=== PATIENT | female | born 1995 | race Caucasian/White ===

== ENCOUNTER 2023-07-08 22:19 | Inpatient (IN) | payer MEDICAID, OTHER ==
[2023-07-09] MEDS ORDERED: LORazepam 2 MG/ML INJ IV PRN ×3 (01:04)
[2023-07-09 01:17] LABS: Appearance,Urine Clear (Clear); Bilirubin,Urine Negative (Negative); Blood,Urine Negative (Negative); Color,Urine Colorless; Glucose,Urine (UA) Negative (Negative); Ketones,Urine Negative (Negative); Leukocyte Esterase,Urine Negative (Negative); Nitrite,Urine Negative (Negative); Protein,Urine Negative (Negative); Specific Gravity,Urine 1.011 (1.001-1.035); Urobilinogen,Urine <2.0 mg/dL (<2.0)
--- NOTE | 2023-07-09 01:28 | ED ---
Abdominal Pain HPI - General Chief Complaint: Abdominal Pain Stated Complaint: Abdominal pains Time Seen by Provider: 07/09/23 00:17 Source: patient Mode of arrival: ambulatory Limitations: no limitations - History of Present Illness Initial Comments: 27-year-old female presenting with chief complaint of abdominal pain and depression. Patient has history of alcohol use disorder. She drinks about 2 fifths per day. Patient was sober for 42 days and has been on a 4-day binge. She has been having some upper abdominal burning and sharp pain. Does have some radiation to the back. She states that a few days ago she was experiencing nausea and vomiting. Patient states that she is significantly depressed and at times hopes that she does not wake up in the morning after drinking. She has no active plan to harm herself. She has no thoughts of wanting to harm others. Her last drink was at 9 PM - Related Data Home Medications Medication Instructions Recorded Confirmed Naltrexone Microspheres [VivitroL] 380 mg IM Q28D 07/09/23 07/09/23 busPIRone HCL 10 mg PO TID 07/09/23 07/09/23 norgestimate-ethinyl estradioL 1 tab PO DIRECTED 07/09/23 07/09/23 [Shyanne 0.25-0.035 mg Tablet] Allergies Allergy/AdvReac Type Severity Reaction Status Date / Time codeine Allergy Nausea & Verified 07/09/23 17:19 Vomiting morphine Allergy Unknown Verified 07/09/23 17:19 Childhood Review of Systems ROS Statement: Those systems with pertinent positive or pertinent negative responses have been documented in the HPI. ROS Other: All systems not noted in ROS Statement are negative. Past Medical History Past Medical History: Asthma Additional Past Medical History / Comment(s): ETOH History of Any Multi-Drug Resistant Organisms: None Reported Additional Past Surgical History / Comment(s): oral surgery/wisdom teeth Past Psychological History: Anxiety Smoking Status: Never smoker Past Alcohol Use History: Heavy Past Drug Use History: Marijuana General Exam Limitations: no limitations General appearance: alert, in no apparent distress Head exam: Present: atraumatic, normocephalic Eye exam: Present: normal appearance, EOMI Neck exam: Present: normal inspection. Absent: meningismus Respiratory exam: Present: normal lung sounds bilaterally. Absent: respiratory distress, wheezes, rales, rhonchi, stridor Cardiovascular Exam: Present: regular rate, normal rhythm, normal heart sounds. Absent: systolic murmur, diastolic murmur, rubs, gallop, clicks GI/Abdominal exam: Present: soft. Absent: distended, tenderness, guarding, rebound, rigid Neurological exam: Present: alert, oriented X3 Psychiatric exam: Present: normal affect, normal mood Skin exam: Present: warm, dry Course Vital Signs 07/08/23 07/09/23 07/09/23 23:05 03:38 06:00 Temperature 98.3 F 98.4 F Pulse Rate 101 H 90 78 Respiratory 20 18 18 Rate Blood Pressure 116/67 91/47 105/74 O2 Sat by Pulse 97 97 98 Oximetry 07/09/23 07/09/23 09:00 14:28 Temperature Pulse Rate 88 80 Respiratory 16 16 Rate Blood Pressure 99/66 120/99 O2 Sat by Pulse 97 99 Oximetry Medical Decision Making - Medical Decision Making Was pt. sent in by a medical professional or institution (, PA, REEL CART OPERATOR, urgent care, hospital, or [place] [facility] [place] facility...) When possible be specific @ -No Did you speak to anyone other than the patient for history (EMS, parent, family, police, friend...)? What history was obtained from this source @ -No Did you review nursing and triage notes (agree or disagree)? Why? @ -I reviewed and agree with nursing and triage notes Were old charts reviewed (outside hosp., previous admission, EMS record, old EKG, old radiological studies, urgent care reports/EKG's, [place] health care facility records)? Report findings @ -No old charts were reviewed Differential Diagnosis (chest pain, altered mental status, abdominal pain women, abdominal pain men, vaginal bleeding, weakness, fever, dyspnea, syncope, headache, dizziness, GI bleed, back pain, seizure, CVA, palpatations, mental health, musculoskeletal)? @ -MDM Differential Abdominal Pain Women: Appendicitis, Cholecystitis, diverticulosis, ischemic bowel, pancreatitis, hepatitis, UTI, gastroenteritis, AAA, incarcerated hernia, bowel obstruction, constipation, inflammatory bowel, hepatitis, peptic ulcer disease, splenic infarction, perforated viscus, vulvitis, ovarian torsion, PID, kidney stone, placenta abruption... This is not meant to be an all-inclusive list EKG interpreted by me (3pts min.). @ -As above X-rays interpreted by me (1pt min.). @ -None done CT interpreted by me (1pt min.). @ -None done U/S interpreted by me (1pt. min.). @ -None done What testing was considered but not performed or refused? (CT, X-rays, U/S, labs)? Why? @ -None What meds were considered but not given or refused? Why? @ -None Did you discuss the management of the patient with other professionals (professionals i.e. , PA, REEL CART OPERATOR, lab, RT, psych nurse, secondary social studies teacher, nuclear reactor technician, teacher, chairman and chief executive officer, showcase trimmer)? Give summary @ -No Was smoking cessation discussed for >3mins.? @ -No Was critical care preformed (if so, how long)? @ -No Were there social determinants of health that impacted care today? How? (Homele ssness, low income, unemployed, alcoholism, drug addiction, transportation, low edu. Level, literacy, decrease access to med. care, longterm, rehab)? @ -No Was there de-escalation of care discussed even if they declined (Discuss DNR or withdrawal of care, Hospice)? DNR status @ -No What co-morbidities impacted this encounter? (DM, HTN, Smoking, COPD, CAD, Cancer, CVA, ARF, Chemo, Hep., AIDS, mental health diagnosis, sleep apnea, morbid obesity)? @ -Alcohol use disorder, depression Was patient admitted / discharged? Hospital course, mention meds given and route, prescriptions, significant lab abnormalities, going to OR and other pertinent info. @ -27-year-old female with alcohol use disorder presenting with chief complaint of abdominal pain as well as depression with suicidal ideation. History and physical exam are conducted. Lipase 320. Patient symptoms were worse earlier in the week. She likely has a resolving pancreatitis. Patient will be evaluated by EPS in the morning. Patient is signed out to my attending. - Lab Data Result diagrams: 07/09/23 01:35 07/09/23 01:35 Lab Results 07/09/23 07/09/23 07/09/23 Range/Units 00:45 00:45 01:35 WBC 6.3 (3.8-10.6) k/uL RBC 4.26 (3.80-5.40) m/uL Hgb 13.2 (11.4-16.0) gm/dL Hct 39.7 (34.0-46.0) % MCV 93.3 (80.0-100.0) fL MCH 31.1 (25.0-35.0) pg MCHC 33.4 (31.0-37.0) g/dL RDW 12.5 (11.5-15.5) % Plt Count 244 (150-450) k/uL MPV 10.3 Neutrophils % 29 % Lymphocytes % 47 % Monocytes % 6 % Eosinophils % 13 % Basophils % 2 % Neutrophils # 1.8 (1.3-7.7) k/uL Lymphocytes # 3.0 (1.0-4.8) k/uL Monocytes # 0.4 (0-1.0) k/uL Eosinophils # 0.8 H (0-0.7) k/uL Basophils # 0.1 (0-0.2) k/uL Sodium (137-145) mmol/L Potassium (3.5-5.1) mmol/L Chloride (98-107) mmol/L Carbon Dioxide (22-30) mmol/L Anion Gap mmol/L BUN (7-17) mg/dL Creatinine (0.52-1.04) mg/dL Est GFR (CKD-EPI)AfAm (>60 ml/min/1.73 sqM) Est GFR (CKD-EPI)NonAf (>60 ml/min/1.73 sqM) Glucose (74-99) mg/dL Plasma Lactic Acid Juan (0.7-2.0) mmol/L Calcium (8.4-10.2) mg/dL Total Bilirubin (0.2-1.3) mg/dL AST (14-36) U/L ALT (4-34) U/L Alkaline Phosphatase (38-126) U/L Total Protein (6.3-8.2) g/dL Albumin (3.5-5.0) g/dL Amylase (30-110) U/L Lipase (23-300) U/L Urine Color Colorless Urine Appearance Clear (Clear) Urine pH 5.0 (5.0-8.0) Ur Specific Organ 1.011 (1.001-1.035) Urine Protein Negative (Negative) Urine Glucose (UA) Negative (Negative) Urine Ketones Negative (Negative) Urine Blood Negative (Negative) Urine Nitrite Negative (Negative) Urine Bilirubin Negative (Negative) Urine Urobilinogen <2.0 (<2.0) mg/dL Ur Leukocyte Esterase Negative (Negative) Urine HCG, Qual Not Detected (Not Detectd) SARS-CoV-2 (PCR) (Not Detectd) 07/09/23 07/09/23 07/09/23 Range/Units 01:35 01:35 12:22 WBC (3.8-10.6) k/uL RBC (3.80-5.40) m/uL Hgb (11.4-16.0) gm/dL Hct (34.0-46.0) % MCV (80.0-100.0) fL MCH (25.0-35.0) pg MCHC (31.0-37.0) g/dL RDW (11.5-15.5) % Plt Count (150-450) k/uL MPV Neutrophils % % Lymphocytes % % Monocytes % % Eosinophils % % Basophils % % Neutrophils # (1.3-7.7) k/uL Lymphocytes # (1.0-4.8) k/uL Monocytes # (0-1.0) k/uL Eosinophils # (0-0.7) k/uL Basophils # (0-0.2) k/uL Sodium 140 (137-145) mmol/L Potassium 4.0 (3.5-5.1) mmol/L Chloride 108 H (98-107) mmol/L Carbon Dioxide 25 (22-30) mmol/L Anion Gap 7 mmol/L BUN 11 (7-17) mg/dL Creatinine 0.74 (0.52-1.04) mg/dL Est GFR (CKD-EPI)AfAm >90 (>60 ml/min/1.73 sqM) Est GFR (CKD-EPI)NonAf >90 (>60 ml/min/1.73 sqM) Glucose 91 (74-99) mg/dL Plasma Lactic Acid Juan 1.0 (0.7-2.0) mmol/L Calcium 9.1 (8.4-10.2) mg/dL Total Bilirubin 0.3 (0.2-1.3) mg/dL AST 19 (14-36) U/L ALT 16 (4-34) U/L Alkaline Phosphatase 85 (38-126) U/L Total Protein 6.8 (6.3-8.2) g/dL Albumin 4.0 (3.5-5.0) g/dL Amylase 65 (30-110) U/L Lipase 320 H (23-300) U/L Urine Color Urine Appearance (Clear) Urine pH (5.0-8.0) Ur Specific Organ (1.001-1.035) Urine Protein (Negative) Urine Glucose (UA) (Negative) Urine Ketones (Negative) Urine Blood (Negative) Urine Nitrite (Negative) Urine Bilirubin (Negative) Urine Urobilinogen (<2.0) mg/dL Ur Leukocyte Esterase (Negative) Urine HCG, Qual (Not Detectd) SARS-CoV-2 (PCR) Not Detected (Not Detectd) Disposition Clinical Impression: Depression, Suicidal ideation, Alcohol use disorder Disposition: ADMITTED IP TO THIS HOSP Condition: Fair
[2023-07-09] MEDS: SODIUM CHLORIDE 0.9% 1,000 ML IV STA (01:36)
[2023-07-09] MEDS: ONDANSETRON 4 MG/2 ML VIAL IVP STA (01:37)
[2023-07-09] MEDS: KETOROLAC 15 MG/ML 1 ML VIAL IVP STA (01:37)
[2023-07-09] MEDS: THIAMINE 100 MG/ML 2 ML VIAL IM STA (01:38)
[2023-07-09 01:55] LABS: Basophils # (A) 0.1 k/uL (0-0.2); Basophils % (A) 2 %; Eosinophils # (A) 0.8 k/uL (0-0.7); Eosinophils % (A) 13 %; HCT 39.7 % (34.0-46.0); HGB 13.2 gm/dL (11.4-16.0); Lymphocytes % (A) 47 %; MCH 31.1 pg (25.0-35.0); MCHC 33.4 g/dL (31.0-37.0); MCV 93.3 fL (80.0-100.0); Mean Platelet Volume 10.3; Monocytes # (A) 0.4 k/uL (0-1.0); Monocytes % (A) 6 %; Neutrophils # (A) 1.8 k/uL (1.3-7.7); Neutrophils % (A) 29 %; Platelet Count 244 k/uL (150-450); RBC 4.26 m/uL (3.80-5.40); RDW 12.5 % (11.5-15.5); WBC 6.3 k/uL (3.8-10.6)
[2023-07-09 02:06] LABS: ALT 16 U/L (4-34); AST 19 U/L (14-36); African American GFR (CKD) >90 (>60 ml/min/1.73 sqM); Alkaline Phosphatase 85 U/L (38-126); Amylase 65 U/L (30-110); Anion Gap 7 mmol/L; Blood Urea Nitrogen 11 mg/dL (7-17); Calcium 9.1 mg/dL (8.4-10.2); Carbon Dioxide 25 mmol/L (22-30); Chloride 108 mmol/L (98-107); Glucose 91 mg/dL (74-99); Lipase 320 U/L (23-300); Non-African American GFR(CKD) >90 (>60 ml/min/1.73 sqM); Sodium 140 mmol/L (137-145); Total Bilirubin 0.3 mg/dL (0.2-1.3); Total Protein 6.8 g/dL (6.3-8.2)
[2023-07-09] MEDS: PANTOPRAZOLE 40 MG/10 ML VIAL IVP STA (06:15)
[2023-07-09] MEDS ORDERED: MAGNESIUM HYDROXIDE 2,400 MG/30 ML CUP PO PRN (14:10)
[2023-07-09] MEDS ORDERED: LORazepam 2 MG/ML INJ IM PRN (14:10)
[2023-07-09] MEDS ORDERED: MAG HYDROX/AL HYDROX/SIMETH 355 ML BOTTLE PO PRN (14:10)
[2023-07-09] MEDS: NICOTINE 14MG/24HR PATCH TRANSDERM SCH (15:30)
[2023-07-09] MEDS: busPIRone HCl 10 MG TAB PO SCH (16:17)
[2023-07-09] MEDS: chlordiazePOXIDE 25 MG CAP PO SCH (16:17)
[2023-07-09] MEDS: IBUPROFEN 600 MG TAB PO PRN (16:18)
[2023-07-09] MEDS: MELATONIN 5 MG TABLET PO PRN (21:12)
[2023-07-09] MEDS: ONDANSETRON ODT 4 MG TAB PO PRN (21:12)
[2023-07-09] MEDS: PANTOPRAZOLE 40 MG TABLET PO SCH (21:12)
[2023-07-10] MEDS: THIAMINE 100 MG TAB PO SCH (08:58)
[2023-07-10] MEDS: ACETAMINOPHEN TAB 325 MG TAB PO PRN (08:58)
[2023-07-10] MEDS: LORazepam 1 MG TAB PO PRN (09:00)
[2023-07-10 10:44] LABS: Chol/HDL Ratio 4.67 Ratio; HDL Cholesterol 42.6 mg/dL (40.00-60.00)
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
[2023-07-10] MEDS: SERTRALINE 50 MG TAB PO SCH (13:31)
--- NOTE | 2023-07-10 16:23 | P.CONS ---
History of Present Illness - Reason for Consult Consult date: 07/10/23 - Chief Complaint Suicidal ideation/depression/abdominal pain - History of Present Illness 27-year-old female presenting with chief complaint of abdominal pain and depression. Patient has history of alcohol use disorder. She drinks about 2 fifths per day. Patient was sober for 42 days and has been on a 4-day binge. She has been having some upper abdominal burning and sharp pain. Does have some radiation to the back. She states that a few days ago she was experiencing nausea and vomiting. Patient states that she is significantly depressed and at times hopes that she does not wake up in the morning after drinking. She has no active plan to harm herself. She has no thoughts of wanting to harm others. Her last drink was at 9 PM Patient reports that she was seen at [facility] a couple days prior to this admission at which time she was diagnosed with pancreatitis and then later discharged home Patient reports no worsening in abdominal pain with meals Review of Systems REVIEW OF SYSTEMS: CONSTITUTIONAL: No fever, no malaise, no fatigue. HEENT: No recent visual problems or hearing problems. Denied any sore throat. CARDIOVASCULAR: No chest pain, orthopnea, PND, no palpitations, no syncope. PULMONARY: No shortness of breath, no cough, no hemoptysis. GASTROINTESTINAL: No diarrhea, no nausea, no vomiting, no abdominal pain. NEUROLOGICAL: No headaches, no weakness, no numbness. HEMATOLOGICAL: Denies any bleeding or petechiae. GENITOURINARY: Denies any burning micturition, frequency, or urgency. MUSCULOSKELETAL/RHEUMATOLOGICAL: Denies any joint pain, swelling, or any muscle pain. ENDOCRINE: Denies any polyuria or polydipsia. The rest of the 14-point review of systems is negative. Past Medical History Past Medical History: Asthma Additional Past Medical History / Comment(s): ETOH History of Any Multi-Drug Resistant Organisms: None Reported Additional Past Surgical History / Comment(s): oral surgery/wisdom teeth Past Psychological History: Anxiety Smoking Status: Never smoker Past Alcohol Use History: Heavy Past Drug Use History: Marijuana Medications and Allergies Home Medications Medication Instructions Recorded Confirmed Type Naltrexone Microspheres [VivitroL] 380 mg IM Q28D 07/09/23 07/09/23 History busPIRone HCL 10 mg PO TID 05/23/24 05/23/24 History norgestimate-ethinyl estradioL 1 tab PO DIRECTED 07/09/23 07/09/23 History [Shyanne 0.25-0.035 mg Tablet] Allergies Allergy/AdvReac Type Severity Reaction Status Date / Time codeine Allergy Nausea & Verified 07/09/23 17:19 Vomiting morphine Allergy Unknown Verified 07/09/23 17:19 Childhood Physical Exam Vitals: Vital Signs Temp Pulse Pulse Resp BP BP Pulse Ox 07/10/23 09:01 75 18 108/59 07/10/23 07:14 97.8 F 70 17 107/61 98 07/09/23 14:53 97.5 F L 78 18 128/85 98 07/09/23 14:28 80 16 120/99 99 General appearance: alert, in no apparent distress Head exam: Present: atraumatic, normocephalic Eye exam: Present: normal appearance, EOMI Neck exam: Present: normal inspection. Absent: meningismus Respiratory exam: Present: normal lung sounds bilaterally. Absent: respiratory distress, wheezes, rales, rhonchi, stridor Cardiovascular Exam: Present: regular rate, normal rhythm, normal heart sounds. Absent: systolic murmur, diastolic murmur, rubs, gallop, clicks GI/Abdominal exam: Present: soft. Absent: distended, tenderness, guarding, rebound, rigid Neurological exam: Present: alert, oriented X3 Psychiatric exam: Present: normal affect, normal mood Skin exam: Present: warm, dry Results CBC & Chem 7: 07/09/23 01:35 07/09/23 01:35 Labs: Abnormal Lab Results - Last 24 Hours (Table) 07/09/23 Range/Units 01:35 Triglycerides 480.00 H (0.00-149.00) mg/dL VLDL Cholesterol, Calc 96.00 H (5.00-40.00) mg/dL Assessment and Plan Assessment: 1. Depression/suicidal ideation; trazodone 50 mg nightly, Zoloft 50 mg daily 2. Chronic alcohol abuse; continue with thiamine and folic acid supplement; patient counseled on need for cessation; patient is currently on Librium 25 mg p.o. twice daily 3. Resolving pancreatitis; lipase is 320 upon admission; patient reports continued abdominal pain but describes no worsening in pain with meals -- We will repeat lipase levels and then make recommendations as needed 4. Gastroesophageal reflux disease; patient has been placed on Protonix 40 mg daily DVT prophylaxis; ambulation CODE STATUS; full code
[2023-07-10 19:29] LABS: Urine Alcohol Positive (Negative); Urine Barbiturate Negative (Negative); Urine Cocaine Negative (Negative); Urine Methadone Negative (Negative); Urine Opiates Negative (Negative); Urine Phencyclidine Negative (Negative)
[2023-07-10] MEDS: chlordiazePOXIDE 25 MG CAP PO SCH (21:43)
[2023-07-10] MEDS: traZODone HCL 50 MG TAB PO SCH (21:43)
--- NOTE | 2023-07-11 19:21 | P.PN ---
Progress Note - Text Progress Note Date: 07/11/23 Interval history: Patient was seen sitting with peers prior meal time and was directable and agreeable to speak with creative services writer. She reports mood is improved, feels better today. She reports she slept well last night on the Trazodone. At this time patient denies any suicidal or homicidal ideation, intent or plan. Denies any auditory or visual hallucinations. Patient denies any side effects from the medications and has been compliant with meds. She is hopeful for discharge early next week. Mental status exam: General Appearance: Patient appears to be stated age is alert, dressed in clean casual attire, good hygiene and grooming. Behavior: Patient is calm, without any agitated behavior. Speech: Patient's speech is fluent and non-pressured. Mood/Affect: Patient reports their mood is better today, affect is congruent. Suicidality/Homicidality: Patient denies having any suicidal or homicidal ideation intent or plan. Perceptions: Patient denies any visual hallucinations and denies any auditory hallucinations. Though content/process: There is no evidence of any delusional thought content and thought process is linear. Memory and concentration: AOX3, grossly intact for the purposes of this session. Judgment and insight: improving mildly Assessment/Plan: Continue with current diagnosis. Patient continues to meet criteria for inpatient psychiatric admission for symptom stabilization and safety. Patient will be maintained on current psychotropic medication regimen. Monitor for medication compliance and for any psychotropic medication side effects. Will continue to monitor ongoing response to treatment. Encouraged participation in milieu.
--- NOTE | 2023-07-12 18:42 | P.PN ---
Progress Note - Text Progress Note Date: 07/12/23 Interval history: Patient was seen sitting with peers prior meal time and was directable and agreeable to speak with bond writer. She reports mood is improved, feels better today, but still some anxiety and depression; she rates depression as 3/10. She reports difficult falling and staying asleep last night and requests an increase in her Trazodone, as well as an increase in her Zoloft and Buspar. At this time patient denies any suicidal or homicidal ideation, intent or plan. Denies any auditory or visual hallucinations. Patient denies any side effects from the medications and has been compliant with meds. She is hopeful for discharge early this week. Mental status exam: General Appearance: Patient appears to be stated age is alert, dressed in clean casual attire, good hygiene and grooming. Behavior: Patient is calm, without any agitated behavior. Speech: Patient's speech is fluent and non-pressured. Mood/Affect: Patient reports their mood is better today but still some anxiety/depression, affect is congruent. Suicidality/Homicidality: Patient denies having any suicidal or homicidal ideation intent or plan. Perceptions: Patient denies any visual hallucinations and denies any auditory hallucinations. Though content/process: There is no evidence of any delusional thought content and thought process is linear. Memory and concentration: AOX3, grossly intact for the purposes of this session. Judgment and insight: improving mildly Assessment/Plan: Continue with current diagnosis. Patient continues to meet criteria for inpatient psychiatric admission for symptom stabilization and safety. Increase Trazodone to 100 mg QHS for sleep. Increase Zoloft to 75 mg daily for depression/anxiety. Will give an additional Zoloft 25 mg x 1 now to make today's Zoloft dose 75 mg. Increase Buspar to 15 mg TID for anxiety. Monitor for medication compliance and for any psychotropic medication side effects. Will continue to monitor ongoing response to treatment. Encouraged participation in milieu. Consider discharge early this week if continues to stabilize.
[2023-07-12] MEDS: SERTRALINE 25 MG TAB PO STA (19:44)
[2023-07-12] MEDS: traZODone HCL 100 MG TAB PO SCH (21:19)
[2023-07-12] MEDS: busPIRone HCl 5 MG TAB PO SCH (21:19)
[2023-07-13 07:04] VITALS: RESP 18
[2023-07-13] MEDS: SERTRALINE 25 MG TAB PO SCH (08:41)
--- NOTE | 2023-07-13 11:44 | P.PN ---
Progress Note - Text Progress Note Date: 07/13/23 Interval history: Patient was seen in the hallway near her room and was directable and agreeable to speak with loan underwriter. She reports good mood, sleep and appetite. She reports she slept well on the higher dose of Trazodone last night and woke feeling refreshed however she feels tired 1-2 hours after taking her morning medications. We discussed switching the Zoloft to bedtime starting tomorrow night since she already took her Zoloft this morning and she agrees. At this time patient denies any suicidal or homicidal ideation, intent or plan. Denies any auditory or visual hallucinations. Patient denies any side effects from the medications and has been compliant with meds. She is hopeful for discharge tomorrow. Mental status exam: General Appearance: Patient appears to be stated age is alert, dressed in clean casual attire, good hygiene and grooming. Behavior: Patient is calm, without any agitated behavior. Speech: Patient's speech is fluent and non-pressured. Mood/Affect: Patient reports their mood is improved, affect is congruent. Suicidality/Homicidality: Patient denies having any suicidal or homicidal ideation intent or plan. Perceptions: Patient denies any visual hallucinations and denies any auditory hallucinations. Though content/process: There is no evidence of any delusional thought content and thought process is linear and goal-directed and future-oriented. Memory and concentration: AOX3, grossly intact for the purposes of this session. Judgment and insight: improving mildly Assessment/Plan: Continue with current diagnosis. Patient continues to meet criteria for inpatient psychiatric admission for symptom stabilization and safety. Continue Trazodone 100 mg QHS for sleep. Adjust Zoloft 75 mg to QHS starting tomorrow night for depression/anxiety due to feeling tired in the morning after taking morning medications. Continue Buspar 15 mg TID for anxiety. Monitor for medication compliance and for any psychotropic medication side effects. Will continue to monitor ongoing response to treatment. Encouraged participation in milieu. Consider discharge tomorrow if continues to stabilize.
[2023-07-14 07:51] VITALS: BP 108/61; PULSE 66; TEMP 97.5
[2023-07-14] MEDS: SERTRALINE 25 MG TAB PO SCH (09:17)
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
[2023-07-14] MEDS ORDERED: SERTRALINE 25 MG TAB PO SCH (21:00)
[2023-07-15] MEDS ORDERED: SERTRALINE 100 MG TAB PO SCH (09:00)
== END 2023-07-14 14:17 | disposition other institution (70) | DRG 751 ==
LOC: EC 22:19 → 3MHU 07-09 14:00
PROVIDERS: ADMIT Psychiatry & Neurology Psychiatry; ATTEND Psychiatry & Neurology Psychiatry
DX: F33.2 Major depressive disorder, recurrent severe without psychotic features (principal); F43.10 Post-traumatic stress disorder, unspecified; F06.4 Anxiety disorder due to known physiological condition; R45.851 Suicidal ideations; F14.11 Cocaine abuse, in remission; K21.9 Gastro-esophageal reflux disease without esophagitis; K85.90 Acute pancreatitis without necrosis or infection, unspecified; F15.11 Other stimulant abuse, in remission; F10.20 Alcohol dependence, uncomplicated; J45.909 Unspecified asthma, uncomplicated; Z65.3 Problems related to other legal circumstances; Z11.52 Encounter for screening for COVID-19; Z71.41 Alcohol abuse counseling and surveillance of alcoholic; Z28.310 Unvaccinated for COVID-19; Z28.21 Immunization not carried out because of patient refusal; Z79.899 Other long term (current) drug therapy; Z91.52 Personal history of nonsuicidal self-harm; Z88.5 Allergy status to narcotic agent
CPT/HCPCS: 36415; 80053; 80061; 80306; 81003; 81025; 82075; 82150; 83036; 83605; 83690; 83721; 84443; 85025; 87635; 96372; 96374; 96375; 99285

== ENCOUNTER 2023-12-19 18:40 | Emergency (ER) | payer MEDICAID, OTHER ==
[2023-12-19 18:49] VITALS: TEMP 98.4
--- NOTE | 2023-12-19 19:14 | ED ---
Female Urogenital HPI - General Chief complaint: Vaginal Bleeding Stated complaint: Vaginal bleeding Time Seen by Provider: 12/19/23 18:58 Source: patient, EMS, RN notes reviewed Mode of arrival: EMS - History of Present Illness Initial comments: This is a 28-year-old female with no significant past medical history presenting to the emergency department via EMS from [facility] for alcohol abuse for chief complaint of vaginal bleeding. Patient states that she had a cervical biopsy completed a few days ago with concern for atypical cells on Pap smear. biopsy was completed at [facility] outpatient facility. Patient states that since this time she has been experiencing continued vaginal bleeding and mild abdominal cramping. she is denying heart palpitations, dizziness, lightheadedness. denies blood thinner use. - Related Data Home Medications Medication Instructions Recorded Confirmed Naltrexone Microspheres [Vivitrol] 380 mg IM Q28D 07/09/23 07/09/23 norgestimate-ethinyl estradioL 1 tab PO DIRECTED 07/09/23 07/09/23 [Shyanne 0.25-0.035 mg Tablet] Previous Rx's Medication Instructions Recorded Pantoprazole [Protonix] 40 mg PO AC-BRKFST 15 Days #15 tab 07/14/23 Sertraline [Zoloft] 100 mg PO DAILY 15 Days #15 tab 07/14/23 Thiamine [Vitamin B-1] 100 mg PO DAILY 30 Days #30 tab 07/14/23 busPIRone HCl [Buspar] 15 mg PO TID 45 Days #45 tab 07/14/23 traZODone HCL [Desyrel] 100 mg PO HS 15 Days #15 tab 07/14/23 Allergies Allergy/AdvReac Type Severity Reaction Status Date / Time codeine Allergy Nausea & Verified 12/19/23 18:49 Vomiting morphine Allergy Unknown Verified 12/19/23 18:49 Childhood Review of Systems ROS Statement: Those systems with pertinent positive or pertinent negative responses have been documented in the HPI. ROS Other: All systems not noted in ROS Statement are negative. Past Medical History Past Medical History: Asthma Additional Past Medical History / Comment(s): ETOH, abnormal pap smear History of Any Multi-Drug Resistant Organisms: None Reported Additional Past Surgical History / Comment(s): oral surgery/wisdom teeth, uterine ablasion Past Psychological History: Anxiety Smoking Status: Never smoker Past Alcohol Use History: Heavy Past Drug Use History: Marijuana General Exam General appearance: alert, in no apparent distress Eye exam: Present: normal appearance, PERRL, EOMI. Absent: scleral icterus, conjunctival injection, periorbital swelling ENT exam: Present: normal exam, mucous membranes moist Neck exam: Present: normal inspection. Absent: tenderness, meningismus, lymphadenopathy Respiratory exam: Present: normal lung sounds bilaterally. Absent: respiratory distress, wheezes, rales, rhonchi, stridor Cardiovascular Exam: Present: regular rate, normal rhythm, normal heart sounds. Absent: systolic murmur, diastolic murmur, rubs, gallop, clicks GI/Abdominal exam: Present: soft, normal bowel sounds. Absent: distended, tenderness, guarding, rebound, rigid Speculum exam: Present: vaginal bleeding Extremities exam: Present: normal inspection, full ROM, normal capillary refill. Absent: tenderness, pedal edema, joint swelling, calf tenderness Back exam: Present: normal inspection Skin exam: Present: warm, dry, intact, normal color. Absent: rash Course Vital Signs 12/19/23 12/19/23 12/19/23 18:43 19:20 21:04 Temperature 98.4 F Pulse Rate 110 H 103 H 86 Respiratory 20 16 20 Rate Blood Pressure 147/104 139/98 122/91 O2 Sat by Pulse 100 97 100 Oximetry Medical Decision Making - Medical Decision Making Was pt. sent in by a medical professional or institution ([facility] Cota, ADJUNCT PHLEBOTOMY INSTRUCTOR, urgent care, hospital, or jail...) When possible be specific @ -No Did you speak to anyone other than the patient for history (EMS, parent, family, police, friend...)? What history was obtained from this source @ -No Did you review nursing and triage notes (agree or disagree)? Why? @ -I reviewed and agree with nursing and triage notes Were old charts reviewed (outside hosp., previous admission, EMS record, old EKG, old radiological studies, urgent care reports/EKG's, jail records)? Report findings @ -No old charts were reviewed Differential Diagnosis (chest pain, altered mental status, abdominal pain women, abdominal pain men, vaginal bleeding, weakness, fever, dyspnea, syncope, headache, dizziness, GI bleed, back pain, seizure, CVA, palpatations, mental health, musculoskeletal)? @ -Differential Vaginal Bleeding: Spontaneous , threatened , molar , ectopic , bloody show, incompetent cervix, abruptioplacenta, placenta previa, uterine rupture, dysfunctional uterine bleeding, hemorrhage, uterine fibroids, this is not meant to be an all-inclusive list. EKG interpreted by me (3pts min.). @ -None X-rays interpreted by me (1pt min.). @ -None done CT interpreted by me (1pt min.). @ -None done U/S interpreted by me (1pt. min.). @ -None done What testing was considered but not performed or refused? (CT, X-rays, U/S, labs)? Why? @ -None What meds were considered but not given or refused? Why? @ -None Did you discuss the management of the patient with other professionals (professionals i.e. , PA, ADJUNCT PHLEBOTOMY INSTRUCTOR, lab, RT, psych nurse, social research assistant, admiralty lawyer, teacher, parole or probation officer, casework manager)? Give summary @ -No Was smoking cessation discussed for >3mins.? @ -No Was critical care preformed (if so, how long)? @ -No Were there social determinants of health that impacted care today? How? (Homeles sness, low income, unemployed, alcoholism, drug addiction, transportation, low edu. Level, literacy, decrease access to med. care, snf, rehab)? @ -No Was there de-escalation of care discussed even if they declined (Discuss DNR or withdrawal of care, Hospice)? DNR status @ -No What co-morbidities impacted this encounter? (DM, HTN, Smoking, COPD, CAD, Cancer, CVA, ARF, Chemo, Hep., AIDS, mental health diagnosis, sleep apnea, morbid obesity)? @ -None Was patient admitted / discharged? Hospital course, mention meds given and route, prescriptions, significant lab abnormalities, going to OR and other pertinent info. @ -Discharge. 28-year-old female with vaginal bleeding status post cergical biopsy. On evaluation patient is resting company no signs acute stress. She is noted to have mild suprapubic tenderness to palpation. On pelvic examination patient noted to have vaginal bleeding and mild cervical bleeding. Patient's laboratory studies including CBC, CMP unremarkable. Patient is stable for discharge at this time. Recommend she follows up as scheduled with glacing machine tender outpatient for further evaluation. Discussed with Dr. Barba Undiagnosed new problem with uncertain prognosis? @ -No Drug Therapy requiring intensive monitoring for toxicity (Heparin, Nitro, Insulin, Cardizem)? @ -No Were any procedures done? @ -No Diagnosis/symptom? @ -Vaginal bleeding Acute, or Chronic, or Acute on Chronic? @ -Acute Uncomplicated (without systemic symptoms) or Complicated (systemic symptoms)? @ -uncomplicated Side effects of treatment? @ -No Exacerbation, Progression, or Severe Exacerbation? @ -No Poses a threat to life or bodily function? How? (Chest pain, [place], [place], pneumonia, PE, COPD, DKA, ARF, appy, cholecystitis, CVA, Diverticulitis, Homicidal, Suicidal, threat to staff... and all critical care pts) @ -No - Lab Data Result diagrams: 12/19/23 19:12 12/19/23 19:12 Lab Results 12/19/23 12/19/23 12/19/23 Range/Units 19:12 19:12 19:12 WBC 6.1 (3.8-10.6) k/uL RBC 4.69 (3.80-5.40) m/uL Hgb 14.6 (11.4-16.0) gm/dL Hct 43.5 (34.0-46.0) % MCV 92.7 (80.0-100.0) fL MCH 31.2 (25.0-35.0) pg MCHC 33.6 (31.0-37.0) g/dL RDW 13.3 (11.5-15.5) % Plt Count 167 (150-450) k/uL MPV 10.9 Neutrophils % 57 % Lymphocytes % 29 % Monocytes % 7 % Eosinophils % 5 % Basophils % 1 % Neutrophils # 3.5 (1.3-7.7) k/uL Lymphocytes # 1.8 (1.0-4.8) k/uL Monocytes # 0.4 (0-1.0) k/uL Eosinophils # 0.3 (0-0.7) k/uL Basophils # 0.0 (0-0.2) k/uL PT 10.5 (10.0-12.5) sec INR 1.0 (<1.2) APTT 23.6 (22.0-30.0) sec Sodium 136 L (137-145) mmol/L Potassium 4.3 (3.5-5.1) mmol/L Chloride 109 H (98-107) mmol/L Carbon Dioxide 22 (22-30) mmol/L Anion Gap 5 mmol/L BUN 20 H (7-17) mg/dL Creatinine 0.72 (0.52-1.04) mg/dL Est GFR (CKD-EPI)AfAm >90 (>60 ml/min/1.73 sqM) Est GFR (CKD-EPI)NonAf >90 (>60 ml/min/1.73 sqM) Glucose 96 (74-99) mg/dL Calcium 9.3 (8.4-10.2) mg/dL Total Bilirubin 0.4 (0.2-1.3) mg/dL AST 27 (14-36) U/L ALT 18 (4-34) U/L Alkaline Phosphatase 79 (38-126) U/L Total Protein 7.3 (6.3-8.2) g/dL Albumin 4.3 (3.5-5.0) g/dL Disposition Clinical Impression: Vaginal bleeding, Uterine cramping Disposition: HOME SELF-CARE Condition: Good Instructions (If sedation given, give patient instructions): Colposcopy (DC) Additional Instructions: Please return to the Emergency Department if symptoms worsen or any other concerns. Recommend that you follow-up as scheduled with glacing machine tender for further evaluation. Is patient prescribed a controlled substance at d/c from ED?: No Referrals: Janneth Ghosh MD [Primary Care Provider] - 1-2 days Time of Disposition: 20:39
[2023-12-19] MEDS: ACETAMINOPHEN TAB 500 MG TAB PO STA (19:17)
[2023-12-19 19:53] LABS: Basophils % (A) 1 %; Eosinophils # (A) 0.3 k/uL (0-0.7); Eosinophils % (A) 5 %; HCT 43.5 % (34.0-46.0); HGB 14.6 gm/dL (11.4-16.0); Lymphocytes # (A) 1.8 k/uL (1.0-4.8); Lymphocytes % (A) 29 %; MCH 31.2 pg (25.0-35.0); MCHC 33.6 g/dL (31.0-37.0); MCV 92.7 fL (80.0-100.0); Mean Platelet Volume 10.9; Monocytes # (A) 0.4 k/uL (0-1.0); Monocytes % (A) 7 %; Neutrophils # (A) 3.5 k/uL (1.3-7.7); Neutrophils % (A) 57 %; Platelet Count 167 k/uL (150-450); RBC 4.69 m/uL (3.80-5.40); RDW 13.3 % (11.5-15.5); WBC 6.1 k/uL (3.8-10.6)
[2023-12-19 20:07] LABS: Partial Thromboplastin Time 23.6 sec (22.0-30.0); Prothrombin Time 10.5 sec (10.0-12.5)
[2023-12-19 20:21] LABS: ALT 18 U/L (4-34); AST 27 U/L (14-36); African American GFR (CKD) >90 (>60 ml/min/1.73 sqM); Albumin 4.3 g/dL (3.5-5.0); Alkaline Phosphatase 79 U/L (38-126); Anion Gap 5 mmol/L; Blood Urea Nitrogen 20 mg/dL (7-17); Calcium 9.3 mg/dL (8.4-10.2); Carbon Dioxide 22 mmol/L (22-30); Chloride 109 mmol/L (98-107); Glucose 96 mg/dL (74-99); Non-African American GFR(CKD) >90 (>60 ml/min/1.73 sqM); Potassium 4.3 mmol/L (3.5-5.1); Sodium 136 mmol/L (137-145); Total Bilirubin 0.4 mg/dL (0.2-1.3); Total Protein 7.3 g/dL (6.3-8.2)
[2023-12-19 21:07] VITALS: BP 122/91; PULSE 86; RESP 20
== END 2023-12-19 21:06 | disposition home or self-care (01) ==
LOC: EC 18:40
DX: N93.9 Abnormal uterine and vaginal bleeding, unspecified (principal); Z88.5 Allergy status to narcotic agent
CPT/HCPCS: 36415; 80053; 85025; 85610; 85730; 99284

== ENCOUNTER 2024-01-22 11:05 | Inpatient (IN) | payer MEDICAID, OTHER ==
--- NOTE | 2024-01-22 12:00 | ED ---
Psych HPI - General Source: patient, RN notes reviewed Mode of arrival: ambulatory <Orinaa Briones - Last Filed: 01/22/24 11:59> - General Source: patient, RN notes reviewed Mode of arrival: ambulatory Limitations: no limitations <Jericho Llamas - Last Filed: 01/22/24 14:42> - General Chief Complaint: Psychiatric Symptoms Stated Complaint: Mental health eval Time Seen by Provider: 01/22/24 11:20 - History of Present Illness Initial Comments: Lauren notethis is a 28-year-old female with history of depression alcohol abuse presented to the emergency department for chief complaint of depression and suicidal ideation. Patient states that she has been off of her psych medications and her feelings of hopelessness have worsened. She denies previous suicidal attempts. States that she was hospitalized to a psychiatric facility in the beginning of June. (Oriana Briones) Patient is a 28-year-old female presenting to the emergency department with concerns for depression. Patient has been off her medications for a month now. Patient recently went to rehab for alcohol use and has not drank in a month. No new physical complaints. Patient feels depressed and has suicidal ideation with plan of overdosing on medication. No homicidal thoughts. No hallucinations. Patient is not sleeping well and that is causing her increased rest as well. Patient occasionally overeats and occasionally under eats. (Jericho Llamas) - Related Data Home Medications Medication Instructions Recorded Confirmed Naltrexone Microspheres [Vivitrol] 380 mg IM Q28D 07/09/23 07/09/23 norgestimate-ethinyl estradioL 1 tab PO DIRECTED 07/09/23 07/09/23 [Shyanne 0.25-0.035 mg Tablet] Previous Rx's Medication Instructions Recorded Pantoprazole [Protonix] 40 mg PO AC-BRKFST 15 Days #15 tab 07/14/23 Sertraline [Zoloft] 100 mg PO DAILY 15 Days #15 tab 07/14/23 Thiamine [Vitamin B-1] 100 mg PO DAILY 30 Days #30 tab 07/14/23 busPIRone HCl [Buspar] 15 mg PO TID 45 Days #45 tab 07/14/23 traZODone HCL [Desyrel] 100 mg PO HS 15 Days #15 tab 07/14/23 Allergies Allergy/AdvReac Type Severity Reaction Status Date / Time codeine Allergy Nausea & Verified 12/06/24 11:15 Vomiting morphine Allergy Unknown Verified 01/22/24 11:15 Childhood Review of Systems ROS Other: All systems not noted in ROS Statement are negative. <Oriana Briones - Last Filed: 01/22/24 11:59> ROS Other: All systems not noted in ROS Statement are negative. Constitutional: Denies: fever Eyes: Denies: eye pain ENT: Denies: ear pain Respiratory: Denies: dyspnea Cardiovascular: Denies: chest pain Gastrointestinal: Denies: abdominal pain Psychiatric: Reports: as per HPI, depression, suicidal thoughts. Denies: auditory hallucinations, visual hallucinations <Jericho Llamas - Last Filed: 01/22/24 14:42> ROS Statement: Those systems with pertinent positive or pertinent negative responses have been documented in the HPI. Past Medical History Past Medical History: Asthma Additional Past Medical History / Comment(s): ETOH, abnormal pap smear History of Any Multi-Drug Resistant Organisms: None Reported Additional Past Surgical History / Comment(s): oral surgery/wisdom teeth, uterine ablasion Past Psychological History: Anxiety Smoking Status: Never smoker Past Alcohol Use History: None Reported, Heavy Past Drug Use History: None Reported, Marijuana <Oriana Briones - Last Filed: 01/22/24 11:59> General Exam Limitations: no limitations <Oriana Briones - Last Filed: 01/22/24 11:59> Limitations: no limitations General appearance: alert, in no apparent distress Head exam: Present: normocephalic Eye exam: Present: normal appearance Respiratory exam: Present: normal lung sounds bilaterally Cardiovascular Exam: Present: regular rate, normal rhythm GI/Abdominal exam: Present: soft. Absent: tenderness Extremities exam: Present: normal inspection Neurological exam: Present: alert Psychiatric exam: Present: suicidal ideation Skin exam: Present: normal color <Jericho Llamas - Last Filed: 01/22/24 14:42> - General Exam Comments Initial Comments: Visual Physical Exam Vital signs reviewed General: Well-appearing, nontoxic, no acute distress. Head: Normocephalic, atraumatic Eyes: PERRLA, EOMI ENT: Airway patent Chest: Nonlabored breathing Skin: No visual rash, normal skin tone Neuro: Alert and oriented 3 Musculoskeletal: No gross abnormalities (Oriana Briones) Course Vital Signs 01/22/24 11:16 Temperature 98.6 F Pulse Rate 90 Respiratory 18 Rate Blood Pressure 128/94 O2 Sat by Pulse 98 Oximetry Medical Decision Making <Oriana Briones - Last Filed: 01/22/24 11:59> <Jericho Llamas - Last Filed: 01/22/24 14:42> - Medical Decision Making I completed the quick note portion of this chart signed Oriana Briones PA-C (Oriana Briones) Was pt. sent in by a medical professional or institution (, [facility], EQUIPMENT RECORDS SUPERVISOR, urgent care, hospital, or penitentiary...) When possible be specific @ -No Did you speak to anyone other than the patient for history (EMS, parent, family, police, friend...)? What history was obtained from this source @ -No Did you review nursing and triage notes (agree or disagree)? Why? @ -I reviewed and agree with nursing and triage notes Were old charts reviewed (outside hosp., previous admission, EMS record, old EKG, old radiological studies, urgent care reports/EKG's, penitentiary records)? Report findings @ -No old charts were reviewed Differential Diagnosis (chest pain, altered mental status, abdominal pain women, abdominal pain men, vaginal bleeding, weakness, fever, dyspnea, syncope, headache, dizziness, GI bleed, back pain, seizure, CVA, palpatations, mental health, musculoskeletal)? @ -Differential Mental Health Depression, anxiety, bipolar, psychosis, schizophrenia, borderline personality, situational depression, adjustment disorder, behavioral disorder, brain tumor, malingering, substance abuse, encephalopathy, medication reaction, dementia, hypothyroidism, degenerative neurologic disorder, lupus.... This is not meant to be all-inclusive list EKG interpreted by me (3pts min.). @ -As above X-rays interpreted by me (1pt min.). @ -None done CT interpreted by me (1pt min.). @ -None done U/S interpreted by me (1pt. min.). @ -None done What testing was considered but not performed or refused? (CT, X-rays, U/S, labs)? Why? @ -None What meds were considered but not given or refused? Why? @ -None Did you discuss the management of the patient with other professionals (professionals i.e. , PA, EQUIPMENT RECORDS SUPERVISOR, lab, RT, psych nurse, social media community manager, chief analytics officer, teacher, chief science officer, case packer and sealer)? Give summary @ -Case discussed with psychiatric worker with plans for psychiatric admission Was smoking cessation discussed for >3mins.? @ -No Was critical care preformed (if so, how long)? @ -No Were there social determinants of health that impacted care today? How? (Homelessness, low income, unemployed, alcoholism, drug addiction, transportation, low edu. Level, literacy, decrease access to med. care, residential, rehab)? @ -No Was there de-escalation of care discussed even if they declined (Discuss DNR or withdrawal of care, Hospice)? DNR status @ -No What co-morbidities impacted this encounter? (DM, HTN, Smoking, COPD, CAD, Cancer, CVA, ARF, Chemo, Hep., AIDS, mental health diagnosis, sleep apnea, morbid obesity)? @ -History of depression Was patient admitted / discharged? Hospital course, mention meds given and route, prescriptions, significant lab abnormalities, going to OR and other pertinent info. @ -Patient presents after medications with increased depression and suicidal thoughts with plan. Patient to be admitted for psychiatric care Undiagnosed new problem with uncertain prognosis? @ -No Drug Therapy requiring intensive monitoring for toxicity (Heparin, Nitro, Insulin, Cardizem)? @ -No Were any procedures done? @ -No Diagnosis/symptom? @ -Depression, suicidal ideation Acute, or Chronic, or Acute on Chronic? @ -Acute, acute Uncomplicated (without systemic symptoms) or Complicated (systemic symptoms)? @ -Default Side effects of treatment? @ -No Exacerbation, Progression, or Severe Exacerbation? @ -No Poses a threat to life or bodily function? How? (Chest pain, [place], [place], pneumonia, PE, COPD, DKA, ARF, appy, cholecystitis, CVA, Diverticulitis, Homicidal, Suicidal, threat to staff... and all critical care pts) @ -No (Jericho Llamas) - Lab Data Lab Results 01/22/24 Range/Units 12:35 Urine Opiates Screen Not Detected (NotDetected) Ur Oxycodone Screen Not Detected (NotDetected) Urine Methadone Screen Not Detected (NotDetected) Ur Barbiturates Screen Not Detected (NotDetected) U Tricyclic Antidepress Not Detected (NotDetected) Ur Phencyclidine Scrn Not Detected (NotDetected) Ur Amphetamines Screen Not Detected (NotDetected) U Methamphetamines Scrn Not Detected (NotDetected) U Benzodiazepines Scrn Not Detected (NotDetected) Urine Cocaine Screen Not Detected (NotDetected) U Marijuana (THC) Screen Not Detected (NotDetected) Disposition <Oriana Briones - Last Filed: 01/22/24 11:59> Is patient prescribed a controlled substance at d/c from ED?: No Time of Disposition: 14:42 <Jericho Llamas - Last Filed: 01/22/24 14:42> Clinical Impression: Depression, Suicidal ideation Disposition: TRANSFER TO PSYCH HOSP/UNIT Referrals: Janneth Ghosh MD [Primary Care Provider] - 1-2 days
[2024-01-22 13:42] LABS: Amphetamine Screen,Urine Not Detected (NotDetected); Barbiturate Screen,Urine Not Detected (NotDetected); Benzodiazepines Screen,Urine Not Detected (NotDetected); Cocaine Screen,Urine Not Detected (NotDetected); Methadone Screen, Urine Not Detected (NotDetected); Opiate Screen,Urine Not Detected (NotDetected); Oxycodone Screen, Urine Not Detected (NotDetected); Phencyclidine Screen,Urine Not Detected (NotDetected); Tricyclic Antidepressant,Urine Not Detected (NotDetected); Urn Cannabinoid Scrn Not Detected (NotDetected)
[2024-01-22] MEDS ORDERED: haloperidoL 5 MG TAB PO PRN (23:45)
[2024-01-22] MEDS ORDERED: HALOPERIDOL LACTATE 5 MG/ML 1 ML VIAL IM PRN (23:45)
[2024-01-22] MEDS ORDERED: MAGNESIUM HYDROXIDE 2,400 MG/30 ML CUP PO PRN (23:45)
[2024-01-22] MEDS ORDERED: LORazepam 2 MG/ML INJ IM PRN (23:45)
[2024-01-22] MEDS ORDERED: IBUPROFEN 600 MG TAB PO PRN (23:45)
[2024-01-23] LABS: Appearance,Urine Cloudy (Clear); Bacteria,Urine Few /hpf; Bilirubin,Urine Negative (Negative); Blood,Urine Negative (Negative); Color,Urine Light Yellow; Glucose,Urine (UA) Negative (Negative); Ketones,Urine Negative (Negative); Leukocyte Esterase,Urine Trace (Negative); Mucus,Urine Rare /hpf; Nitrite,Urine Negative (Negative); PH, Urine 5.5 (5.0-8.0); Protein,Urine Negative (Negative); RBC,Urine 2 /hpf (0-5); Specific Gravity,Urine 1.022 (1.001-1.035); Squamous Epithelial Cell,Urine 27 /hpf (0-4); Urobilinogen,Urine <2.0 mg/dL (<2.0); WBC,Urine 8 /hpf (0-5)
[2024-01-23] MEDS ORDERED: ALBUTEROL INHALER 60 PUFF/8 GM INHALER (MHU) INHALATION PRN
[2024-01-23] MEDS ORDERED: MAG HYDROX/AL HYDROX/SIMETH 355 ML BOTTLE PO PRN
[2024-01-23] MEDS ORDERED: TEMAZEPAM 15 MG CAP PO PRN (00:15)
[2024-01-23] MEDS: FERROUS SULFATE 325 MG TAB PO SCH (00:30)
[2024-01-23 06:43] LABS: Basophils # (A) 0.1 k/uL (0-0.2); Basophils % (A) 1 %; Eosinophils # (A) 0.5 k/uL (0-0.7); Eosinophils % (A) 10 %; HCT 46.8 % (34.0-46.0); HGB 15.2 gm/dL (11.4-16.0); Lymphocytes # (A) 1.7 k/uL (1.0-4.8); Lymphocytes % (A) 33 %; MCH 29.1 pg (25.0-35.0); MCHC 32.4 g/dL (31.0-37.0); MCV 89.7 fL (80.0-100.0); Mean Platelet Volume 10.9; Monocytes # (A) 0.4 k/uL (0-1.0); Monocytes % (A) 8 %; Neutrophils # (A) 2.2 k/uL (1.3-7.7); Neutrophils % (A) 44 %; Platelet Count 156 k/uL (150-450); RBC 5.21 m/uL (3.80-5.40); RDW 12.6 % (11.5-15.5); WBC 5.1 k/uL (3.8-10.6)
[2024-01-23 06:58] LABS: ALT 42 U/L (4-34); AST 29 U/L (14-36); African American GFR (CKD) >90 (>60 ml/min/1.73 sqM); Alkaline Phosphatase 69 U/L (38-126); Anion Gap 4 mmol/L; Bilirubin, Delta 0.1 mg/dL (0.0-0.2); Bilirubin,Unconjugated 0.6 mg/dL (0.0-1.1); Blood Urea Nitrogen 18 mg/dL (7-17); Calcium 9.2 mg/dL (8.4-10.2); Carbon Dioxide 25 mmol/L (22-30); Chloride 107 mmol/L (98-107); Glucose 92 mg/dL (74-99); Non-African American GFR(CKD) 88 (>60 ml/min/1.73 sqM); Potassium 4.4 mmol/L (3.5-5.1); Sodium 136 mmol/L (137-145); Total Bilirubin 0.7 mg/dL (0.2-1.3); Total Protein 6.9 g/dL (6.3-8.2)
[2024-01-23] MEDS: busPIRone HCl 5 MG TAB PO SCH (08:46)
[2024-01-23] MEDS: INFLUENZA VACC (6 MOS-64 YRS) 45 MCG/0.5 ML SYRINGE IM ONE (08:46)
[2024-01-23] MEDS: CHOLECALCIFEROL 25 MCG (1000 IU) TABLET PO SCH (08:46)
[2024-01-23] MEDS: SERTRALINE 100 MG TAB PO SCH (08:46)
[2024-01-23] MEDS: THIAMINE 100 MG TAB PO SCH (08:46)
[2024-01-23 10:06] VITALS: RESP 20
[2024-01-23] MEDS: NON FORMULARY DRUG (Disulfiram 250 MG Tab) PO SCH (10:54)
[2024-01-23 12:29] VITALS: BMI 26.9
[2024-01-23 13:43] LABS: Chol/HDL Ratio 4.94 Ratio; LDL Cholesterol,Calculated 106.7 mg/dL (0.0-131.0)
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
[2024-01-23] MEDS: CEFDINIR 300 MG CAP PO SCH (16:20)
[2024-01-23] MEDS: FLUCONAZOLE 100 MG TAB PO SCH (16:20)
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
[2024-01-23] MEDS: busPIRone HCl 10 MG TAB PO SCH (21:01)
[2024-01-23] MEDS: traZODone HCL 100 MG TAB PO SCH (21:01)
[2024-01-24] MEDS: ATORVASTATIN 20 MG TAB PO SCH (08:24)
--- NOTE | 2024-01-24 17:27 | P.PN ---
Progress Note - Text Interval History: Patient was seen in bed and woke easily and was agreeable to talk. She describes having slept really well overnight and feels that her body needed to rest. She feels "pretty good" today and had a good conversation with her best friend and was reminded of how much her friend cares about her. She notices that she is "not as sad and mopey" and is feeling "optimistic" about the future. She recognizes the impact discontinuing her medications had on her mood and subsequently her wellbeing and feels that restarting them has improved her outlook. At this time patient denies any suicidal or homicidal ideations, intent or plan. Patient denies any auditory, visual hallucinations and denies any paranoia or delusions. Patient denies any side effects from the medications and has been compliant with meds. MENTAL STATUS EXAM: General Appearance: Patient appears to be stated age is alert, directable, and cooperative. Patient appears to have good hygiene and grooming. Behavior: Patient is seated without any agitated behavior. Speech: Patient's speech is fluent and nonpressured. Mood/Affect: Patient reports their mood is "pretty good", affect is congruent and euthymic. Suicidality/Homicidality: Patient denies having any homicidal ideation intent or plan. Endorses suicidal ideation. Denies any suicidal intent or plan Perceptions: Patient denies any visual hallucinations and denies any auditory hallucinations Though content/process: There is no evidence of any delusional thought content and thought process is linear and goal-directed. Memory and concentration: AOX3, grossly intact for the purposes of this session. Can recall recent and remote history. Judgment and insight: Fair, improving Assessment: - Severe alcohol use disorder, in early remission - Major depressive disorder, recurrent - History of PTSD PLAN: -Patient is admitted under voluntary status to [facility]HU for stabilization of psychiatric symptoms and safety. Patient has signed adult voluntary form and medication consent and is placed in patient's chart. -Medications : - Continue Sertraline 100 mg daily - Continue Buspirone 15 mg BID and 20 mg QHS - Continue Trazodone 100 mg at bedtime - Continue Disulfiram 250 mg daily; also on Vivitrol (last IM was 01/07/24) -Ativan and Haldol PRN for agitation/aggression -Patient was counselled on substance abuse and desires to maintain sobriety -Patient was informed of the risks, benefits and side effects of the medication and patient verbally consented to taking the medications. Patient signed med consent form and was placed in chart. -NRT -nicotine patch not needed as patient does not smoke regularly or consistently -SW on board for discharge planning. Encourage patient to participate in groups to work on coping skills.
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
[2024-01-25] MEDS: ACETAMINOPHEN TAB 325 MG TAB PO PRN (21:09)
[2024-01-26 09:42] VITALS: BP 118/79; PULSE 72; TEMP 97.1
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
== END 2024-01-26 12:55 | disposition home or self-care (01) | DRG 751 ==
LOC: EC 11:05 → 3MHU 23:31
PROVIDERS: ADMIT Psychiatry & Neurology Psychiatry; ATTEND Psychiatry & Neurology Psychiatry
DX: F33.2 Major depressive disorder, recurrent severe without psychotic features (principal); F41.9 Anxiety disorder, unspecified; F43.10 Post-traumatic stress disorder, unspecified; J45.909 Unspecified asthma, uncomplicated; N39.0 Urinary tract infection, site not specified; F17.210 Nicotine dependence, cigarettes, uncomplicated; F10.21 Alcohol dependence, in remission; E78.5 Hyperlipidemia, unspecified; R45.851 Suicidal ideations; Z91.52 Personal history of nonsuicidal self-harm; Z79.899 Other long term (current) drug therapy; Z65.3 Problems related to other legal circumstances; Z63.0 Problems in relationship with spouse or partner; Z88.5 Allergy status to narcotic agent
CPT/HCPCS: 80053; 80061; 80306; 81001; 81025; 82075; 82248; 83036; 84443; 85025; 87635; 99285

== ENCOUNTER → 2024-05-18 | Outpatient (CLI) | payer OTHER ==
[2024-05-18 18:31] LABS: ALT 44 U/L (8-44); AST 31 U/L (13-35); Albumin 4.7 g/dL (3.8-4.9); Albumin/Globulin Ratio 1.81 Ratio (1.60-3.17); Alkaline Phosphatase 80 U/L (41-126); Blood Urea Nitrogen 12.2 mg/dL (9.0-27.0); Calcium 10.3 mg/dL (8.7-10.3); Carbon Dioxide 22.8 mmol/L (21.6-31.8); Chloride 108 mmol/L (96-109); Globulin 2.6 g/dL (1.6-3.3); Glucose 90 mg/dL (70-110); Potassium 4.6 mmol/L (3.5-5.5); Sodium 146 mmol/L (135-145); Total Bilirubin 0.2 mg/dL (0.3-1.2); Total Protein 7.3 g/dL (6.2-8.2)
== END | disposition home or self-care (01) ==
LOC: LABWHC1 15:05
PROVIDERS: ATTEND Family Medicine
DX: F10.20 Alcohol dependence, uncomplicated (principal)
CPT/HCPCS: 36415; 80053

== ENCOUNTER 2024-05-24 20:53 | Observation (INO) | payer OTHER ==
--- NOTE | 2024-05-24 21:23 | ED ---
Alcohol HPI - General Chief Complaint: Alcohol Stated Complaint: Overdose,Suicidal Time Seen by Provider: 05/24/24 21:06 Source: patient, RN notes reviewed, old records reviewed Mode of arrival: ambulatory Limitations: no limitations - History of Present Illness Initial Comments: This is a 28-year-old female to the ER for evaluation of weakness and altered mental status. Patient is persistently confused here in the emergency department severely intoxicated and allegedly took Ativan as an overdose tonight. 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 -: minute(s) Previous Visits for Alcohol Intoxication?: Yes Recent Trauma: Yes Associated Symptoms: denies other symptoms Treatments Prior to Arrival: other Chronic Alcohol Use: No - Related Data Home Medications Medication Instructions Recorded Confirmed Ferrous Sulfate [Iron (65 MG 325 mg PO DAILY 05/25/24 05/25/24 Elemental)] Naltrexone Microspheres [Vivitrol] 380 mg IM QMONTHLY 05/25/24 05/25/24 Previous Rx's Medication Instructions Recorded Cholecalciferol (Vitamin D3) 50 mcg PO DAILY 30 Days #30 tab 01/26/24 [Vitamin D3 (50 Mcg = 2000 Iu)] Disulfiram [Antabuse] 250 mg PO DAILY 30 Days #30 tab 01/26/24 Sertraline [Zoloft] 100 mg PO DAILY 30 Days #30 tab 01/26/24 Thiamine [Vitamin B-1] 100 mg PO DAILY 30 Days #30 tab 01/26/24 busPIRone HCL 15 mg PO BID@0800,1300 30 Days #60 01/26/24 tab busPIRone HCl [Buspar] 20 mg PO HS 30 Days #60 tab 01/26/24 traZODone HCL [Desyrel] 100 mg PO HS 30 Days #30 tab 01/26/24 Acetaminophen Tab [Tylenol] 650 mg PO Q6HR PRN tab 05/26/24 busPIRone HCl [Buspar] 20 mg PO HS 21 Days #42 tab 05/26/24 Allergies Allergy/AdvReac Type Severity Reaction Status Date / Time morphine Allergy Unknown Verified 05/25/24 07:01 Childhood codeine AdvReac Nausea & Verified 05/25/24 07:01 Vomiting Review of Systems ROS Statement: Those systems with pertinent positive or pertinent negative responses have been documented in the HPI. ROS Other: All systems not noted in ROS Statement are negative. Past Medical History Past Medical History: Asthma Additional Past Medical History / Comment(s): ETOH, abnormal pap smear History of Any Multi-Drug Resistant Organisms: None Reported Additional Past Surgical History / Comment(s): oral surgery/wisdom teeth, uterine ablasion Past Anesthesia/Blood Transfusion Reactions: No Reported Reaction Past Psychological History: Anxiety, Depression Smoking Status: Current every day smoker, Vaper Past Alcohol Use History: Heavy Past Drug Use History: Marijuana General Exam Limitations: no limitations General appearance: alert, in no apparent distress Head exam: Present: atraumatic, normocephalic, normal inspection Eye exam: Present: normal appearance, PERRL, EOMI. Absent: scleral icterus, conjunctival injection, periorbital swelling ENT exam: Present: normal exam, mucous membranes moist Neck exam: Present: normal inspection. Absent: tenderness, meningismus, lymphadenopathy Respiratory exam: Present: normal lung sounds bilaterally. Absent: respiratory distress, wheezes, rales, rhonchi, stridor Cardiovascular Exam: Present: regular rate, normal rhythm, normal heart sounds. Absent: systolic murmur, diastolic murmur, rubs, gallop, clicks GI/Abdominal exam: Present: soft, normal bowel sounds. Absent: distended, tenderness, guarding, rebound, rigid Extremities exam: Present: normal inspection, full ROM, normal capillary refill. Absent: tenderness, pedal edema, joint swelling, calf tenderness Back exam: Present: normal inspection Neurological exam: Present: alert, oriented X3, CN II-XII intact Psychiatric exam: Present: normal affect, normal mood Skin exam: Present: warm, dry, intact, normal color. Absent: rash Course Vital Signs 05/24/24 05/24/24 05/25/24 21:01 23:50 01:51 Temperature 98.1 F 98.3 F Pulse Rate 126 H 93 90 Respiratory 18 18 18 Rate Blood Pressure 138/90 101/66 118/76 O2 Sat by Pulse 97 97 100 Oximetry - Reevaluation(s) Reevaluation #1: 05/24/24 22:40 Medical records reviewed Reevaluation #2: 05/24/24 22:40 Patient symptoms unchanged Reevaluation #3: 05/24/24 22:40 Patient informed of results and questions answered Reevaluation #4: Was pt. sent in by a medical professional or institution (, PA, WOOD AND HARDWARE OUTFITTER, urgent care, hospital, or [place] health care facility...) When possible be specific @ -no Did you speak to anyone other than the patient for history (EMS, parent, family, police, friend...)? What history was obtained from this source @ -no Did you review nursing and triage notes (agree or disagree)? Why? @ -agree Are old charts reviewed (outside hosp., previous admission, EMS record, old EKG, old radiological studies, urgent care reports/EKG's, [place] health care facility records)? Report findings @ -yes Differential Diagnosis (chest pain, altered mental status, abdominal pain women, abdominal pain men, vaginal bleeding, weakness, fever, dyspnea, syncope, headache, dizziness, GI bleed, back pain, seizure, CVA, palpatations, mental health, musculoskeletal)? @ -prior EKG interpreted by me (3pts min.). @ -yes X-rays interpreted by me (1pt min.). @ -yes negative for acute disease CT interpreted by me (1pt min.). @ -no U/S interpreted by me (1pt. min.). @ -no What testing was considered but not performed or refused? (CT, X-rays, U/S, labs)? Why? @ -none What meds were considered but not given or refused? Why? @ -none Did you discuss the management of the patient with other professionals (professionals i.e. , YEISON, WOOD AND HARDWARE OUTFITTER, lab, RT, psych nurse, social and human services assistant, vessel traffic officer, teacher, banking officer, shelter case manager)? Give summary @ -no Was smoking cessation discussed for >3mins.? @ -no Was critical care preformed (if so, how long)? @ -yes31 Were there social determinants of health that impacted care today? How? ([place] elessness, low income, unemployed, alcoholism, drug addiction, transportation, low edu. Level, literacy, decrease access to med. care, half-way, rehab)? @ -none Was there de-escalation of care discussed even if they declined (Discuss DNR or withdrawal of care, Hospice)? DNR status @ -no What co-morbidities impacted this encounter? (DM, HTN, Smoking, COPD, CAD, Cancer, CVA, ARF, Chemo, Hep., AIDS, mental health diagnosis, sleep apnea, morbid obesity)? @ -none Was patient admitted / discharged? Hospital course, mention meds given and route, prescriptions, significant lab abnormalities, going to OR and other pertinent info. @ - 28 Female severe alcohol intoxication with overdose, overdose as a suicide attempt will admit for psychiatric evaluation and treatment Transferred to psychiatric unit Undiagnosed new problem with uncertain prognosis? @ -no Drug Therapy requiring intensive monitoring for toxicity (Heparin, Nitro, Insulin, Cardizem)? @ -no Were any procedures done? @ -no Diagnosis/symptom? @ -Suicide attempt as an overdose Acute, or Chronic, or Acute on Chronic? @ -Acute Uncomplicated (without systemic symptoms) or Complicated (systemic symptoms)? @ -Complicated Side effects of treatment? @ -no Exacerbation, Progression, or Severe Exacerbation? @ -exacerbation Poses a threat to life or bodily function? How? (Chest pain, USA, NV, pneumonia, PE, COPD, DKA, ARF, appy, cholecystitis, CVA, Diverticulitis, Homicidal, Suicidal, threat to staff... and all critical care pts) @ -yes with suicide attempt Reevaluation #5: Differential Altered Mental Status: Hypoglycemia, DKA, hypercapnia, ETOH, overdose, CO poisoning, trauma, myxedema coma, HTN encephalopathy, infection, encephalitis, psychosis, intercranial hemorrhage, hepatic encephalopathy, meningitis, CVA, this is not meant to be an all-inclusive list Medical Decision Making - Medical Decision Making 28 Female severe alcohol intoxication with overdose, overdose as a suicide attempt will admit for psychiatric evaluation and treatment - Lab Data Result diagrams: 05/26/24 03:10 05/26/24 03:10 Lab Results 05/24/24 05/24/24 05/24/24 Range/Units 21:37 21:37 21:37 WBC 8.61 (4.50-10.00) 10*3/uL RBC 5.94 H (4.10-5.20) 10*6/uL Hgb 17.7 H (12.0-15.0) g/dL Hct 50.6 H (37.2-46.3) % MCV 85.2 (80.0-97.0) fL MCH 29.8 (27.0-32.0) pg MCHC 35.0 (32.0-37.0) g/dL Plt Count 365 (140-440) 10*3/uL MPV 11.9 (9.5-12.2) fL Immature Gran % (Auto) 0.1 % Neutrophils % 35.1 % Lymphocytes % 51.5 % Monocytes % 6.7 % Eosinophils % 4.9 % Basophils % 1.7 % Immature Gran # 0.01 (0.00-0.04) 10*3/uL Neutrophils # 3.02 (1.80-7.70) 10*3/uL Lymphocytes # 4.43 (0.90-5.00) 10*3/uL Monocytes # 0.58 (0.20-1.00) 10*3/uL Eosinophils # 0.42 H (0.04-0.35) 10*3/uL Basophils # 0.15 H (0.00-0.10) 10*3/uL Sodium (137-145) mmol/L Potassium (3.5-5.1) mmol/L Chloride (98-107) mmol/L Carbon Dioxide (22-30) mmol/L Anion Gap mmol/L BUN (7-17) mg/dL Creatinine (0.52-1.04) mg/dL Est GFR (CKD-EPI)AfAm (>60 ml/min/1.73 sqM) Est GFR (CKD-EPI)NonAf (>60 ml/min/1.73 sqM) Glucose (74-99) mg/dL Calcium (8.4-10.2) mg/dL Total Bilirubin (0.2-1.3) mg/dL AST (14-36) U/L ALT (4-34) U/L Alkaline Phosphatase (38-126) U/L Total Protein (6.3-8.2) g/dL Albumin (3.5-5.0) g/dL Lipase (23-300) U/L Urine HCG, Qual Not Detected (Not Detectd) Salicylates mg/dL Urine Opiates Screen Not Detected (NotDetected) Ur Oxycodone Screen Not Detected (NotDetected) Urine Methadone Screen Not Detected (NotDetected) Acetaminophen ug/mL Ur Barbiturates Screen Not Detected (NotDetected) U Tricyclic Antidepress Not Detected (NotDetected) Ur Phencyclidine Scrn Not Detected (NotDetected) Ur Amphetamines Screen Not Detected (NotDetected) U Methamphetamines Scrn Not Detected (NotDetected) U Benzodiazepines Scrn Not Detected (NotDetected) Urine Cocaine Screen Not Detected (NotDetected) U Marijuana (THC) Screen Not Detected (NotDetected) Serum Alcohol mg/dL 05/24/24 Range/Units 21:37 WBC (4.50-10.00) 10*3/uL RBC (4.10-5.20) 10*6/uL Hgb (12.0-15.0) g/dL Hct (37.2-46.3) % MCV (80.0-97.0) fL MCH (27.0-32.0) pg MCHC (32.0-37.0) g/dL Plt Count (140-440) 10*3/uL MPV (9.5-12.2) fL Immature Gran % (Auto) % Neutrophils % % Lymphocytes % % Monocytes % % Eosinophils % % Basophils % % Immature Gran # (0.00-0.04) 10*3/uL Neutrophils # (1.80-7.70) 10*3/uL Lymphocytes # (0.90-5.00) 10*3/uL Monocytes # (0.20-1.00) 10*3/uL Eosinophils # (0.04-0.35) 10*3/uL Basophils # (0.00-0.10) 10*3/uL Sodium 147 H (137-145) mmol/L Potassium 4.6 (3.5-5.1) mmol/L Chloride 103 (98-107) mmol/L Carbon Dioxide 27 (22-30) mmol/L Anion Gap 17 mmol/L BUN 9 (7-17) mg/dL Creatinine 0.90 (0.52-1.04) mg/dL Est GFR (CKD-EPI)AfAm >90 (>60 ml/min/1.73 sqM) Est GFR (CKD-EPI)NonAf 87 (>60 ml/min/1.73 sqM) Glucose 103 H (74-99) mg/dL Calcium 10.1 (8.4-10.2) mg/dL Total Bilirubin 0.7 (0.2-1.3) mg/dL AST 33 (14-36) U/L ALT 24 (4-34) U/L Alkaline Phosphatase 91 (38-126) U/L Total Protein 9.2 H (6.3-8.2) g/dL Albumin 5.5 H (3.5-5.0) g/dL Lipase 230 (23-300) U/L Urine HCG, Qual (Not Detectd) Salicylates <1.0 mg/dL Urine Opiates Screen (NotDetected) Ur Oxycodone Screen (NotDetected) Urine Methadone Screen (NotDetected) Acetaminophen <10.0 ug/mL Ur Barbiturates Screen (NotDetected) U Tricyclic Antidepress (NotDetected) Ur Phencyclidine Scrn (NotDetected) Ur Amphetamines Screen (NotDetected) U Methamphetamines Scrn (NotDetected) U Benzodiazepines Scrn (NotDetected) Urine Cocaine Screen (NotDetected) U Marijuana (THC) Screen (NotDetected) Serum Alcohol 386 H* mg/dL Critical Care Time Critical Care Time: Yes Total Critical Care Time: 31 Disposition Clinical Impression: Alcohol use disorder, Suicidal ideation, Depression, Major depressive disorder, recurrent severe without psychotic features, Alcohol dependence, Anxiety disorder, unspecified, Overdose Disposition: ADMITTED IP TO THIS [facility] Condition: Stable Is patient prescribed a controlled substance at d/c from ED?: No
[2024-05-24] MEDS: SODIUM CHLORIDE 0.9% 500 ML 500 ML IV STA (21:37)
[2024-05-24] MEDS: SODIUM CHLORIDE 0.9% 1,000 ML IV STA (21:37)
[2024-05-24 21:44] LABS: Basophils # (A) 0.15 10*3/uL (0.00-0.10); Basophils % (A) 1.7 %; Eosinophils # (A) 0.42 10*3/uL (0.04-0.35); Eosinophils % (A) 4.9 %; HCT 50.6 % (37.2-46.3); HGB 17.7 g/dL (12.0-15.0); Lymphocytes # (A) 4.43 10*3/uL (0.90-5.00); Lymphocytes % (A) 51.5 %; MCH 29.8 pg (27.0-32.0); MCV 85.2 fL (80.0-97.0); Mean Platelet Volume 11.9 fL (9.5-12.2); Monocytes # (A) 0.58 10*3/uL (0.20-1.00); Monocytes % (A) 6.7 %; Neutrophils # (A) 3.02 10*3/uL (1.80-7.70); Neutrophils % (A) 35.1 %; Platelet Count 365 10*3/uL (140-440); RBC 5.94 10*6/uL (4.10-5.20); RDW 12.8 % (11.5-14.5); WBC 8.61 10*3/uL (4.50-10.00)
[2024-05-24 21:56] LABS: ALT 24 U/L (4-34); AST 33 U/L (14-36); Acetaminophen <10.0 ug/mL; African American GFR (CKD) >90 (>60 ml/min/1.73 sqM); Albumin 5.5 g/dL (3.5-5.0); Alkaline Phosphatase 91 U/L (38-126); Anion Gap 17 mmol/L; Blood Urea Nitrogen 9 mg/dL (7-17); Calcium 10.1 mg/dL (8.4-10.2); Carbon Dioxide 27 mmol/L (22-30); Chloride 103 mmol/L (98-107); Glucose 103 mg/dL (74-99); Lipase 230 U/L (23-300); Non-African American GFR(CKD) 87 (>60 ml/min/1.73 sqM); Potassium 4.6 mmol/L (3.5-5.1); Salicylate <1.0 mg/dL; Sodium 147 mmol/L (137-145); Total Bilirubin 0.7 mg/dL (0.2-1.3); Total Protein 9.2 g/dL (6.3-8.2)
[2024-05-24 21:59] LABS: Amphetamine Screen,Urine Not Detected (NotDetected); Barbiturate Screen,Urine Not Detected (NotDetected); Benzodiazepines Screen,Urine Not Detected (NotDetected); Cocaine Screen,Urine Not Detected (NotDetected); Methadone Screen, Urine Not Detected (NotDetected); Opiate Screen,Urine Not Detected (NotDetected); Oxycodone Screen, Urine Not Detected (NotDetected); Phencyclidine Screen,Urine Not Detected (NotDetected); Tricyclic Antidepressant,Urine Not Detected (NotDetected); Urn Cannabinoid Scrn Not Detected (NotDetected)
[2024-05-24 22:04] LABS: Alcohol 386 mg/dL
[2024-05-24] MEDS ORDERED: LORazepam 0.5 MG TAB PO PRN (22:37)
[2024-05-24] MEDS ORDERED: LORazepam 1 MG TAB PO PRN ×3 (22:37)
[2024-05-24] MEDS ORDERED: NALOXONE 0.4 MG/ML 1 ML VIAL IV PRN (22:37)
[2024-05-24] MEDS ORDERED: LORazepam 2 MG/ML INJ IV PRN ×3 (22:37)
[2024-05-24] MEDS: SODIUM CHLORIDE 0.9% 1,000 ML IV SCH (23:54)
[2024-05-25] MEDS: traZODone HCL 100 MG TAB PO ONE (01:49)
[2024-05-25] MEDS: traZODone HCL 50 MG TAB PO ONE (01:54)
[2024-05-25] MEDS ORDERED: LORazepam 1 MG/0.5 ML VIAL IV PRN ×3 (08:03→08:04)
--- NOTE | 2024-05-25 13:28 | P.HPIM ---
History of Present Illness This is a pleasant 28 years old female who presents with alcohol intoxication. Patient currently awake alert states that she was sober for 6 months but she relapsed 3 days ago she could not give a specific reason but she was drinking about 2 fifth every day. On presentation her alcohol level was elevated. Currently she denies any specific complaint no chest pain or dyspnea. No specific GI surgery or symptoms. No headache dizziness weakness numbness. She states she smokes cigarettes occasionally but she was counseled to quit and she agrees but she declines nicotine patch. She drinks alcohol as above. No illicit drugs. She states she took extra pills of Ativan yesterday and the intent to go protect her from withdrawal however currently she denies suicidal thoughts or homicidal thoughts to me. She has a therapist as an outpatient She is hemodynamically stable and afebrile Sodium 147 rest of labs including CBC, BMP, LFT and troponin were unremarkable Urine hCG is negative Urine drug screen is negative Serum alcohol was elevated 386. EKG showing sinus tachycardia at [address]-T changes Acetaminophen and salicylate levels were low. Patient started on CINH protocol thiamine and normal sinus 75 mL/h Sitter was present in the room at bedside throughout the whole encounter and physical exam Psychiatry team are consulted Review of Systems Review of systems CONSTITUTIONAL: No fever, no malaise, no fatigue. HEENT: No recent visual problems or hearing problems. Denied any sore throat. CARDIOVASCULAR: No orthopnea, PND, no palpitations, no syncope. PULMONARY: No shortness of breath, no cough, no hemoptysis. GASTROINTESTINAL: No diarrhea, no nausea, no vomiting, no abdominal pain. Normoactive bowel sounds. NEUROLOGICAL: No headaches, no weakness, no numbness. HEMATOLOGICAL: Denies any bleeding or petechiae. GENITOURINARY: Denies any burning micturition, frequency, or urgency. MUSCULOSKELETAL/RHEUMATOLOGICAL: Denies any joint pain, swelling, or any muscle pain. ENDOCRINE: Denies any polyuria or polydipsia. Past Medical History Past Medical History: Asthma Additional Past Medical History / Comment(s): ETOH, abnormal pap smear History of Any Multi-Drug Resistant Organisms: None Reported Additional Past Surgical History / Comment(s): oral surgery/wisdom teeth, uterine ablasion Past Anesthesia/Blood Transfusion Reactions: No Reported Reaction Smoking Status: Current every day smoker Medications and Allergies Home Medications Medication Instructions Recorded Confirmed Type Cholecalciferol (Vitamin D3) 50 mcg PO DAILY 30 Days #30 tab 01/26/24 05/25/24 Rx [Vitamin D3 (50 Mcg = 2000 Iu)] Disulfiram [Antabuse] 250 mg PO DAILY 30 Days #30 tab 01/26/24 05/25/24 Rx Sertraline [Zoloft] 100 mg PO DAILY 30 Days #30 tab 01/26/24 05/25/24 Rx Thiamine [Vitamin B-1] 100 mg PO DAILY 30 Days #30 tab 01/26/24 05/25/24 Rx busPIRone HCL 15 mg PO BID@0800,1300 30 Days #60 01/26/24 05/25/24 Rx tab busPIRone HCl [Buspar] 20 mg PO HS 30 Days #60 tab 01/26/24 05/25/24 Rx traZODone HCL [Desyrel] 100 mg PO HS 30 Days #30 tab 01/26/24 05/25/24 Rx Ferrous Sulfate [Iron (65 MG 325 mg PO DAILY 05/25/24 05/25/24 History Elemental)] Naltrexone Microspheres [Vivitrol] 380 mg IM QMONTHLY 05/25/24 05/25/24 History Allergies Allergy/AdvReac Type Severity Reaction Status Date / Time morphine Allergy Unknown Verified 05/25/24 07:01 Childhood codeine AdvReac Nausea & Verified 05/25/24 07:01 Vomiting Physical Exam Vitals: Vital Signs Temp Pulse Pulse Resp BP BP Pulse Ox 05/25/24 08:07 97.7 F 69 18 111/87 97 05/25/24 01:51 98.3 F 90 18 118/76 100 05/24/24 23:50 93 18 101/66 97 05/24/24 21:01 98.1 F 126 H 18 138/90 97 Intake and Output 05/24/24 05/25/24 05/25/24 22:59 06:59 14:59 Other: Weight 56.699 kg 56.699 kg GENERAL: The patient is alert and oriented x3, not in any acute distress. Well developed, well nourished. HEENT: Pupils are round and equally reacting to light. EOMI. No scleral icterus. No conjunctival pallor. Normocephalic, atraumatic. No pharyngeal erythema. No thyromegaly. CARDIOVASCULAR: S1 and S2 present. No murmurs, rubs, or gallops. PULMONARY: Chest is clear to auscultation, no wheezing , no crackles. ABDOMEN: Soft, nontender, nondistended, normoactive bowel sounds. No palpable organomegaly. MUSCULOSKELETAL: No joint swelling or deformity. EXTREMITIES: No cyanosis, clubbing, or pedal edema. NEUROLOGICAL: Gross neurological examination did not reveal any focal deficits. SKIN: No rashes. no petechiae. Results CBC & Chem 7: 05/24/24 21:37 05/24/24 21:37 Labs: Abnormal Lab Results - Last 24 Hours (Table) 05/24/24 05/24/24 Range/Units 21:37 21:37 RBC 5.94 H (4.10-5.20) 10*6/uL Hgb 17.7 H (12.0-15.0) g/dL Hct 50.6 H (37.2-46.3) % Eosinophils # 0.42 H (0.04-0.35) 10*3/uL Basophils # 0.15 H (0.00-0.10) 10*3/uL Sodium 147 H (137-145) mmol/L Glucose 103 H (74-99) mg/dL Total Protein 9.2 H (6.3-8.2) g/dL Albumin 5.5 H (3.5-5.0) g/dL Serum Alcohol 386 H* mg/dL Thrombosis Risk Factor Assmnt - Choose All That Apply Any of the Below Risk Factors Present?: No Other Risk Factors: No Other congenital or acquired thrombophilia - If yes, enter type in comment: No Thrombosis Risk Factor Assessment Level: Very Low Risk Assessment and Plan Assessment: Alcohol intoxication Alcohol withdrawal Depression There was concerns about suicidal thoughts of taking extra pills Mild nicotine use disorder Plan: Continue with CIWA Continue with thiamine Continue with suicidal precaution Continue with sitter at bedside for safety Patient cannot leave AMA till cleared by psychiatrist Psychiatric team evaluation Further recommendation based on the clinical course GI prophylaxis and DVT prophylaxis
--- NOTE | 2024-05-25 14:39 | P.CN ---
Psychiatric Consult - . Consult date: 05/25/24 Consult:: 05/25/24 14:29 IDENTIFYING DATA: This patient is a 28-year-old female, living at [facility] REASON FOR REFERRAL: Psychiatry was consulted for SI HISTORY OF PRESENT ILLNESS: The patient presented to the hospital intoxicated with a blood alcohol level of 386. Patient reportedly took Ativan due to being suicidal given her recent relapse. UDS however was negative for benzodiazepines. Patient seen and evaluated with sitter at bedside. Patient vehemently denies suicidal ideations and stated she did not take Ativan yesterday however she was planning on possibly taking this to help with withdrawals. She states ultimately coming here due to her therapist expressing concerns given her recent relapse. She states she was feeling bad because she was close to her 6-month sobriety, relapsing for 3 days on 02/20 and a half of hard liquor. She has been living at [facility] for the past 6 months which she finds helpful. She follows with [facility] and was encouraged to make a follow-up appointment with her psychiatrist there. She otherwise denies any depressive symptoms, reporting some mild alcohol withdrawal symptoms. At this time patient denies any suicidal or homicidal ideations, intent or plan. Patient denies any auditory, visual hallucinations and denies any paranoia or delusions. Patients admits to using alcohol for the past 3 days. PAST PSYCHIATRIC HISTORY: Patient has a history of major depressive disorder, alcohol use disorder. Patient is currently prescribed Zoloft 100 mg daily, Antabuse 250 mg daily, BuSpar 15 mg twice daily and 20 mg at bedtime, trazodone 100 mg at bedtime, Vivitrol 380 mg IM last given on 04/24/2024. Patient was recently hospitalized at this facility on the [facility] in 01/2024. Patient follows with [facility] and sees a therapist regularly. Patient denies any history of suicide attempts in the past. PAST MEDICAL HISTORY: Asthma. ALLERGIES: as per EMR. CHEMICAL DEPENDENCY HISTORY: as per HPI. FAMILY PSYCHIATRIC/SUBSTANCE USE HISTORY: Denies SOCIAL HISTORY: Patient is been living at [facility] for the past 6 months. MENTAL STATUS EXAM: General Appearance: Patient appears to be stated age is alert, pleasant, and cooperative. Patient appears to have fair hygiene and grooming wearing hospital gown with fair eye contact. Behavior: Patient is calmly lying in bed without any agitated behavior. Speech: Patient's speech is fluent and nonpressured. Mood/Affect: Patient reports their mood is "better", affect is congruent, reactive Suicidality/Homicidality: Patient denies having any suicidal or homicidal ideation intent or plan. Perceptions: Patient denies any visual hallucinations and denies any auditory hallucinations Though content/process: There is no evidence of any delusional thought content and thought process is linear and goal-directed. Memory and concentration: AOX3, grossly intact for the purposes of this session. Can spell "WORLD" backwards Judgment and insight: Poor IMPRESSIONS: Alcohol use disorder Major depressive disorder PLAN: -At this time patient DOES NOT meet criteria for inpatient psychiatric admission. -Would recommend the following medication changes/additions: Patient is agreeable with administering Vivitrol 380 mg IM today, restart Zoloft 100 mg daily, BuSpar 15 mg twice daily and 20 mg at bedtime, trazodone 100 mg at bedtime. Patient was encouraged to make a follow-up appointment with her psychiatrist at [facility] protocol with PRN Ativan for alcohol withdrawal. Continue to monitor vital signs. -Can discontinue 1:1 sitter at this time as patient is not currently an imminent threat to themselves -Biofuels Manager spoke with patient about substance abuse and the harmful effects on medical and mental health, patient verbally understood and agreed. -Communicated plan to patient's nurse -Psychiatry will sign off at this time -Please contact with any questions.
[2024-05-25] MEDS: SERTRALINE 100 MG TAB PO SCH (16:20)
[2024-05-25] MEDS: NALTREXONE MICROSPHERES 380 MG VIAL (NO COST - VIVITROL) IM ONE (16:20)
[2024-05-25] MEDS: ACETAMINOPHEN TAB 325 MG TAB PO PRN (21:19)
[2024-05-25] MEDS: traZODone HCL 100 MG TAB PO SCH (21:20)
[2024-05-25] MEDS: busPIRone HCl 10 MG TAB PO SCH (21:20)
[2024-05-25] MEDS: ONDANSETRON 4 MG/2 ML VIAL IVP PRN (21:25)
[2024-05-26 07:22] VITALS: RESP 18
[2024-05-26] MEDS: busPIRone HCl 5 MG TAB PO SCH (08:29)
[2024-05-26 08:40] LABS: Basophils # (A) 0.08 X 10*3/uL (0.00-0.10); Basophils % (A) 1.6 %; Eosinophils # (A) 0.32 X 10*3/uL (0.04-0.35); Eosinophils % (A) 6.5 %; HCT 42.1 % (37.2-46.3); Lymphocytes # (A) 1.89 X 10*3/uL (0.90-5.00); Lymphocytes % (A) 38.3 %; MCH 29.9 pg (27.0-32.0); MCHC 33.3 g/dL (32.0-37.0); MCV 89.8 FL (80.0-97.0); Mean Platelet Volume 12.7 FL (9.5-12.2); Monocytes # (A) 0.36 X 10*3/uL (0.20-1.00); Monocytes % (A) 7.3 %; NRBC Per 100 WBC 0 X 10*3/uL (0.00-0.01); Neutrophils # (A) 2.27 X 10*3/uL (1.80-7.70); Neutrophils % (A) 46.1 %; Platelet Count 229 X 10*3/uL (140-440); RBC 4.69 X 10*6/uL (4.10-5.20); RDW 13.1 % (11.5-14.5); WBC 4.93 X 10*3/uL (4.50-10.00)
[2024-05-26 08:51] LABS: ALT 14 U/L (8-44); AST 19 U/L (13-35); Albumin 3.6 g/dL (3.8-4.9); Albumin/Globulin Ratio 1.89 Ratio (1.60-3.17); Alkaline Phosphatase 68 U/L (41-126); BUN/Creat Ratio 7.38 Ratio (12.00-20.00); Bilirubin, Conjugated 0.41 mg/dL (0.20-0.40); Bilirubin,Unconjugated 0.59 mg/dL (0.20-1.00); Blood Urea Nitrogen 5.9 mg/dL (9.0-27.0); Calcium 8.6 mg/dL (8.7-10.3); Carbon Dioxide 24.9 mmol/L (21.6-31.8); Chloride 108 mmol/L (96-109); Globulin 1.9 g/dL (1.6-3.3); Glucose 79 mg/dL (70-110); Potassium 4.2 mmol/L (3.5-5.5); Sodium 138 mmol/L (135-145); Total Protein 5.5 g/dL (6.2-8.2)
[2024-05-26 11:59] LABS: INR 0.99 sec (0.93-1.11); Prothrombin Time 11.3 sec (9.9-11.9)
[2024-05-26 12:30] VITALS: BP 135/83; PULSE 64; TEMP 98.2
--- NOTE | 2024-05-27 06:27 | P.DS ---
Providers Date of admission: 05/24/24 22:39 Attending physician: Ramakrishna [place] Consults: 05/24/24 22:37 Consult Physician Routine Consulting Provider: Psychiatry - [facility] Psychiatry Consult Reason/Comments: si Do you want consulting provider notified?: Yes Primary care physician: Janneth Ghosh [place] [facility] Course: Diagnoses: Alcohol intoxication Alcohol withdrawal Depression There was concerns about suicidal thoughts of taking extra pills, however patient confirms she tried taking Ativan for withdrawal purposes Mild nicotine use disorder Hospital course: This is a pleasant 28 years old female who presents with alcohol intoxication. Patient currently awake alert states that she was sober for 6 months but she relapsed 3 days ago she could not give a specific reason but she was drinking about 2 fifth every day. On presentation her alcohol level was elevated. When she woke up I talked with the patient she states she tried to take Ativan pills for withdrawal purpose. She denies suicidal thoughts to me. No homicidal ideas. Patient evaluated by psychiatry service who found her does not meet criteria for inpatient psych unit admission, will discontinue the sitter and suicide precaution. Psychiatrist recommend to continue with same home medication of Zoloft and BuSpar twice daily and trazodone at bedtime, patient confirms she has prescription for this medication at home but psychiatrist added BuSpar at bedtime which is provided for the patient upon discharge. Upon discharge patient denies any active signs symptoms of depression or suicidal ideation. She has no or minimal withdrawal symptoms as she was drinking alcohol only for 3 days. No other new complaint. Patient wants to go home. Psychiatry service cleared her for discharge in the sign of the case with recommendation to follow-up with her psychotherapy as an outpatient, patient informed that she agrees to follow-up within 1 week Problems and management plan were discussed with the patient and he verbalized understanding and acceptance Patient was found stable and can be discharged home in guarded prognosis however he needs follow-up as an outpatient. Patient was instructed to follow up with PCP Dr. Garcia within one week and patient agrees Physical exam Gen: patient is a AAOx3, no distress CVS: S1-S2, RRR, no murmur Lungs: B/L CTA, no wheezing Abdomen: soft, no distention, no tenderness, positive bowel sounds Extremity: no leg edema or induration Time spent more than 35 minutes Patient Condition at Discharge: Stable Plan - Discharge Summary New Discharge Prescriptions: New busPIRone HCl [Buspar] 20 mg PO HS 21 Days #42 tab Acetaminophen Tab [Tylenol] 650 mg PO Q6HR PRN tab PRN Reason: Fever And/ Or Pain Continue busPIRone HCl [Buspar] 20 mg PO HS 30 Days #60 tab busPIRone HCL 15 mg PO BID@0800,1300 30 Days #60 tab Thiamine [Vitamin B-1] 100 mg PO DAILY 30 Days #30 tab Cholecalciferol (Vitamin D3) [Vitamin D3 (50 Mcg = 2000 Iu)] 50 mcg PO DAILY 30 Days #30 tab Sertraline [Zoloft] 100 mg PO DAILY 30 Days #30 tab Ferrous Sulfate [Iron (65 MG Elemental)] 325 mg PO DAILY Naltrexone Microspheres [Vivitrol] 380 mg IM QMONTHLY Disulfiram [Antabuse] 250 mg PO DAILY 30 Days #30 tab traZODone HCL [Desyrel] 100 mg PO HS 30 Days #30 tab Discharge Medication List Cholecalciferol (Vitamin D3) [Vitamin D3 (50 Mcg = 2000 Iu)] 50 mcg PO DAILY 30 Days #30 tab 01/26/24 [Rx] Disulfiram [Antabuse] 250 mg PO DAILY 30 Days #30 tab 01/26/24 [Rx] Sertraline [Zoloft] 100 mg PO DAILY 30 Days #30 tab 01/26/24 [Rx] Thiamine [Vitamin B-1] 100 mg PO DAILY 30 Days #30 tab 01/26/24 [Rx] busPIRone HCL 15 mg PO BID@0800,1300 30 Days #60 tab 01/26/24 [Rx] busPIRone HCl [Buspar] 20 mg PO HS 30 Days #60 tab 01/26/24 [Rx] traZODone HCL [Desyrel] 100 mg PO HS 30 Days #30 tab 01/26/24 [Rx] Ferrous Sulfate [Iron (65 MG Elemental)] 325 mg PO DAILY 05/25/24 [History] Naltrexone Microspheres [Vivitrol] 380 mg IM QMONTHLY 05/25/24 [History] Acetaminophen Tab [Tylenol] 650 mg PO Q6HR PRN tab 05/26/24 [Rx] busPIRone HCl [Buspar] 20 mg PO HS 21 Days #42 tab 05/26/24 [Rx] Follow up Appointment(s)/Referral(s): Janneth Ghosh MD [Primary Care Provider] - 1-2 days (please call to make follow-up appointment, office on lunch at time of discharge.) Patient Instructions/Handouts: Abuse of Alcohol (DC) Activity/Diet/Wound Care/Special Instructions: Follow-up with your psychotherapist in 1 week, you have the contact information as well from the medical doctors Regular diet Activity is restricted till you see your doctor Discharge/Stand Alone Forms: Community Resources Discharge Disposition: HOME SELF-CARE
== END 2024-05-26 13:32 | disposition home or self-care (01) ==
LOC: EC 20:53 → 5NMEDONC 22:39
PROVIDERS: ADMIT Hospitalist; ATTEND Hospitalist
DX: F10.229 Alcohol dependence with intoxication, unspecified (principal); F10.239 Alcohol dependence with withdrawal, unspecified; F33.2 Major depressive disorder, recurrent severe without psychotic features; R45.851 Suicidal ideations; F41.9 Anxiety disorder, unspecified; F17.210 Nicotine dependence, cigarettes, uncomplicated; Z88.5 Allergy status to narcotic agent; Z79.899 Other long term (current) drug therapy; Y90.8 Blood alcohol level of 240 mg/100 ml or more
CPT/HCPCS: 96376; 96361 ×3; 96372; 96374; 82075; 96360; 99285; 36415; 80053; 80048; 80076; 83690; 85025 ×2; 85610; 81025; 80306; 80143; 80179; G0378 ×3; G0480; J2405 ×2; J2315; 80320